=== PATIENT | female | born 1935 | race Caucasian/White ===

== ENCOUNTER 2021-04-11 14:20 | Emergency (ER) | payer MEDICAID ==
[~2021-04-11] VITALS: Ht 146.1 cm; Wt 57.4 kg
[2021-04-11 14:37] VITALS: BP 201/85
[2021-04-11] MEDS ORDERED: KETOROLAC 60 MG/2 ML VIAL IM ONE (15:00)
[2021-04-11] MEDS ORDERED: IBUP-2213 PO (15:58)
--- NOTE | 2021-04-11 15:58 | NUR ---
INCENTIVE SPIROMETRY THERAPY COMPLETED TOLERATED PROCEURE WELL WITHOUT COMPLICATIONS NOTED EDUCATION PROVIDED FAMILY MEMBER PRESENT FOR INTERPRETATION
[2021-04-11] MEDS ORDERED: ACET-8386 PO (15:59)
--- NOTE | 2021-04-11 16:00 | NUR ---
C/O 9/10 LEFT UPPER BACK PAIN AFTER BEING TOWER ERECTOR BY GRANDSON X 4 DAYS. BP 205/85 AT THIS TIME. PMH: RIGHT BREAST SURGERY, HTN
[2021-04-11 16:42] VITALS: BP 201/85
--- NOTE | 2021-04-11 16:42 | NUR ---
Patient discharged with v/s stable. Written and verbal after care instructions given and explained. Patient alert, oriented and verbalized understanding of instructions. Ambulatory with steady gait. All questions addressed prior to discharge. ID band removed. Patient advised to follow up with PMD. Rx of IBUPROFEN, NORCO given. Patient educated on indication of medication including possible reaction and side effects. Opportunity to ask questions provided and answered.
== END 2021-04-11 16:42 | disposition home or self-care (01) ==
LOC: MED 14:20
DX: S22.42XA Multiple fractures of ribs, left side, initial encounter for closed fracture (principal); I10 Essential (primary) hypertension; Z98.890 Other specified postprocedural states; X58.XXXA Exposure to other specified factors, initial encounter; Y92.89 Other specified places as the place of occurrence of the external cause; Y93.89 Activity, other specified; Y99.8 Other external cause status
CPT/HCPCS: 71101; 96372; 99283; J1885